=== PATIENT | female | born 1975 | race Caucasian/White ===

== ENCOUNTER 2017-11-28 12:34 | Inpatient (IN) | payer OTHER ==
[2017-11-28 12:57] VITALS: BMI 28.5
--- NOTE | 2017-11-28 15:02 | HP ---
COWS - Scale Resting Pulse: 1= NM 81-100 Sweatin= Chills/Flushing Restless Observation: 3= Extraneous Movement (rocking back and forth) Pupil Size: 0= Normal to Room Light Bone or Joint Aches: 2= Severe Diffuse Aches Runny Nose/ Eye Tearin= Runny Nose/Eyes GI Upset > 30mins: 2= Nausea/Diarrhea Tremor Observation: 2= Slight Tremor Visible Yawning Observation: 2= >3x During Session Anxiety or Irritability: 2=Irritable/Anxious Goose Flesh Skin: 0=Smooth Skin COWS Score: 17 Admission ROS S - HPI Chief Complaint: opiate withdrawal sx patient denies medical issue admitted has bipolar I treated with lithium last dose unknown Allergies/Adverse Reactions: Allergies Allergy/AdvReac Type Severity Reaction Status Date / Time No Known Allergies Allergy Verified 11/28/17 15:03 History of Present Illness: 42 years old female with long history of opiate and nicotine dependence, treated with suboxone x 2 years sine 2011 last dose 2013 methadone program "few months ago" at dosage 120 mg has bipolar and no teeth is admitted to detox Exam Limitations: No Limitations - Ebola screening Have you traveled outside of the country in the last 21 days: No Have you had contact with anyone from an Ebola affected area: No Have you been sick,other than usual withdrawal symptoms: No Do you have a fever: No - Review of Systems Constitutional: Changes in sleep, Weight Stable EENT: reports: Dental Problems (no teeth no dental) Respiratory: reports: No Symptoms reported Cardiac: reports: No Symptoms Reported GI: reports: Nausea, Poor Fluid Intake, Abdominal cramping : reports: No Symptoms Reported Musculoskeletal: reports: Back Pain, Joint Pain, Muscle Pain, Neck Pain Integumentary: reports: No Symptoms Reported Neuro: reports: Seizure (shampoo for lice 1993), Tremors Endocrine: reports: No Symptoms Reported Hematology: reports: No Symptoms Reported Psychiatric: reports: Judgement Intact, Orientated x3, Depressed Other Systems: Reviewed and Negative Patient History - Patient Medical History Hx Anemia: No Hx Asthma: No Hx Chronic Obstructive Pulmonary Disease (COPD): No Hx Cancer: No Hx Cardiac Disorders: No Hx Congestive Heart Failure: No Hx Hypertension: No Hx Hypercholesterolemia: No Hx Pacemaker: No HX Cerebrovascular Accident: No Hx Seizures: No Hx Dementia: No Hx Diabetes: No Hx Gastrointestinal Disorders: No Hx Liver Disease: No Hx Genitourinary Disorders: No Hx Sexually Transmitted Disorders: No Hx Renal Disease (ESRD): No Hx Thyroid Disease: No Hx Human Immunodeficiency Virus (HIV): No Hx Hepatitis C: No Hx Depression: No Hx Suicide Attempt: No Hx Bipolar Disorder: Yes Hx Schizophrenia: No - Patient Surgical History Past Surgical History: Yes Hx Neurologic Surgery: No Hx Cataract Extraction: No Hx Cardiac Surgery: No Hx Lung Surgery: No Hx Breast Surgery: No Hx Breast Biopsy: No Hx Abdominal Surgery: No Hx Appendectomy: No Hx Cholecystectomy: Yes (2003) Hx Genitourinary Surgery: No Hx Orthopedic Surgery: No Anesthesia Reaction: No - PPD History Previous Implant?: Yes Documented Results: Negative w/o proof Implanted On Prior R Admission?: No PPD to be Administered?: Yes - Reproductive History Patient is a Female of Child Bearing Age (11 -55 yrs old): Yes Last Menstrual Period: 11/27/17 Patient : No - Smoking Cessation Smoking history: Current every day smoker Have you smoked in the past 12 months: Yes Aproximately how many cigarettes per day: 30 Cigars Per Day: 0 Hx Chewing Tobacco Use: No Initiated information on smoking cessation: Yes 'Breaking Loose' booklet given: 11/28/17 - Substance & Tx. History Hx Alcohol Use: No Hx Substance Use: Yes Substance Use Type: Cocaine, Heroin, Opiates Hx Substance Use Treatment: Yes (2011) Family Disease History - Family Disease History Family Disease History: Heart Disease: Father Admission Physical Exam BHS - Vital Signs Vital Signs: Vital Signs - 24 hr 11/28/17 12:51 Temperature 97.7 F Pulse Rate 78 Respiratory 18 Rate Blood Pressure 144/90 - Physical General Appearance: Yes: Appropriately Dressed, Moderate Distress, Tremorous, Irritable, Sweating, Anxious HEENTM: Yes: Normocephalic, Normal Voice, Other (NO TEETH ABLE TO CHEW REGULAR FOOD) Respiratory: Yes: Lungs Clear, Normal Breath Sounds, No Respiratory Distress, No Accessory Muscle Use Neck: Yes: Supple, Trachea in good position Breast: Yes: Breasts Symetrical, No Discharge Cardiology: Yes: Regular Rhythm, Regular Rate, S1, S2 Abdominal: Yes: Non Tender, Flat, Soft, Increased Bowel Sounds Genitourinary: Yes: Within Normal Limits Back: Yes: Normal Inspection Musculoskeletal: Yes: full range of Motion, Gait Steady, Back pain, Muscle Pain Extremities: Yes: Normal Inspection, Normal Range of Motion, Non-Tender, Tremors Neurological: Yes: Fully Oriented, Alert, Motor Strength 5/5, Normal Response, Depressed Affect Integumentary: Yes: Warm, Other (FEW MOSQUIDO BITS ON LEGS AND UPPER RUCK) Lymphatic: Yes: Within Normal Limits - Diagnostic (1) Opioid dependence with withdrawal Current Visit: Yes Status: Acute (2) Bipolar I disorder Current Visit: Yes Status: Suspected (3) No natural teeth Current Visit: Yes Status: Chronic Comment: LOST DENTURE (4) History of methadone use Current Visit: Yes Status: Resolved Comment: 120 MG LAST DOSE "FEW MONTHS AGO" Cleared for Admission [facility] - Detox or Rehab [facility] Level of Care: Medically Managed Detox Regimen/Protocol: Methadone [facility] Breath Alcohol Content Breath Alcohol Content: 0 Urine Pregancy Test - Result Urine Test Results: Negative- NO Line Present Urine Drug Screen - Results Drug Screen Negative: No Urine Drug Screen Results: OLEGARIO-Cocaine, OPI-Opiates, BZO-Benzodiazepines, MTD- Methadone
[2017-11-28] MEDS ORDERED: MAGNESIUM CITRATE 300 ML BOTTLE PO PRN (15:12)
[2017-11-28] MEDS ORDERED: MAGNESIUM HYDROX 2400MG/30ML ORAL SUSPENSION 30 ML CUP PO PRN (15:12)
[2017-11-28] MEDS ORDERED: P-EPHED 60MG/TRIPROLIDI 2.5MG TABLET PO PRN (15:12)
[2017-11-28] MEDS ORDERED: MENTHOL/PHENOL 1 EACH UD MM PRN (15:12)
[2017-11-28] MEDS ORDERED: ACETAMINOPHEN 325 MG TABLET (FP) PO PRN (15:12)
[2017-11-28] MEDS ORDERED: NICOTINE POLACRILEX 4 MG GUM BC PRN (15:12)
[2017-11-28] MEDS ORDERED: LOPERAMIDE HCL 2 MG CAPSULE PO PRN (15:12)
[2017-11-28] MEDS ORDERED: guaiFENesin/D-METHORPHAN HB 10 ML UNIT-DOSE CUPS PO PRN (15:12)
[2017-11-28] MEDS ORDERED: METHADONE HCL 10 MG TABLET (FOR DETOX USE ONLY) PO ONE ×2 (16:30→23:00)
[2017-11-28] MEDS: NICOTINE 21 MG/24 HOURS TOPICAL PATCH TD SCH (18:07)
[2017-11-28] MEDS: diazePAM 5 MG TABLET PO PRN (20:59)
[2017-11-28] MEDS: THIAMINE HCL 100 MG TABLET (FP) PO SCH (22:20)
[2017-11-28] MEDS: MELATONIN 5 MG TABLETS PO PRN (23:45)
--- NOTE | 2017-11-29 07:41 | CONSULT ---
[facility] Psychiatric Consult - Data Date of interview: 11/29/17 Admission source: [facility] Identifying data: This is 42 years old female, mother of ten, , homeless, on SSI and SSD, with long history of opiate, cocaine and nicotine dependence, history of psychiatric hospitalizations and Bipolar Disorder, reports withdrawal symptoms and seeking for detox. Substance Abuse History: Smoking history: Current every day smoker. Have you smoked in the past 12 months: Yes. Aproximately how many cigarettes per day: 30. Cigars Per Day: 0. Hx Chewing Tobacco Use: No. Initiated information on smoking cessation: Yes. 'Breaking Loose' booklet given: 11/28/17. - Substance & Tx. History. Hx Alcohol Use: No. Hx Substance Use: Yes. Substance Use Type : Cocaine, Heroin, Opiates. Hx Substance Use Treatment: Yes (2011). Urine Drug Screen Results: OLEGARIO-Cocaine, OPI-Opiates, BZO-Benzodiazepines, MTD- Methadone Medical History: Denies significant medical issues Psychiatric History: Patient reports history of Bipolar Disorder, reports most recent psychiatric admission on about 10 years ago, currently is not taking psychiatric medications. Patient reports insomnia, reports taking prior to admission: Ambien 10mg po prn qhs for insomnia Physical/Sexual Abuse/Trauma History: Denies Additional Comment: Urine Drug Screen Results: OLEGARIO-Cocaine, OPI-Opiates, BZO- Benzodiazepines, MTD-Methadone. Ambien 10mg po prn qhs for insomnia Mental Status Exam - Mental Status Exam Alert and Oriented to: Person Cognitive Function: Fair Patient Appearance: Well Groomed Mood: Anxious Affect: Normal Range Patient Behavior: Cooperative Speech Pattern: Appropriate Voice Loudness: Normal Thought Process: Goal Oriented Thought Disorder: Being Controlled Hallucinations: Denies Suicidal Ideation: Denies Homicidal Ideation: Denies Insight/Judgement: Fair Sleep: Difficulty falling asleep Appetite: Fair Muscle strength/Tone: Normal Gait/Station: Normal Additional Comments: Ambien 10mg po prn qhs for insomnia Psychiatric Findings - Problem List ([place] 1, 2,3) (1) Opioid dependence Current Visit: Yes Status: Acute (2) Cocaine abuse Current Visit: Yes Status: Acute (3) Nicotine dependence Current Visit: Yes Status: Acute (4) Opioid dependence with withdrawal Current Visit: Yes Status: Acute (5) Bipolar I disorder Current Visit: Yes Status: Suspected (6) History of methadone use Current Visit: Yes Status: Resolved Comment: 120 MG LAST DOSE "FEW MONTHS AGO" (7) Drug-induced mood disorder Current Visit: Yes Status: Acute - Initial Treatment Plan Initial Treatment Plan: Ambien 10mg po prn qhs for insomnia
[2017-11-29 09:24] LABS: HEMATOCRIT 39.8 % (32.4-45.2); HEMOGLOBIN 13.6 GM/dL (10.7-15.3); MCH 31.2 pg (25.7-33.7); MCHC 34.3 g/dl (32.0-36.0); MEAN CELL VOLUME 90.7 fl (80-96); MEAN PLT VOLUME 9.7 fl (7.5-11.1); PLATELET COUNT 197 K/MM3 (134-434); RBC 4.38 M/mm3 (3.60-5.2); RDW 14.6 % (11.6-15.6); WHITE BLOOD COUNT 5.9 K/mm3 (4.0-10.0)
[2017-11-29] MEDS: diazePAM 5 MG TABLET PO PRN ×3 (09:40→22:07)
[2017-11-29] MEDS: IBUPROFEN 400 MG TABLET (FP) PO PRN (09:40)
[2017-11-29] MEDS ORDERED: METHADONE HCL 10 MG TABLET (FOR DETOX USE ONLY) PO ONE (10:00)
--- NOTE | 2017-11-29 10:16 | EKG ---
Test Reason : Blood Pressure : / mmHG Vent. Rate : 066 BPM Atrial Rate : 066 BPM P-R Int : 116 ms QRS Dur : 086 ms QT Int : 392 ms P-R-T Axes : 037 029 053 degrees QTc Int : 410 ms NORMAL SINUS RHYTHM NORMAL ECG NO PREVIOUS ECGS AVAILABLE Confirmed by ELIUD SPENCER, JIHAN ([id number]) on 11/29/2017 10:15:47 AM Referred By: Confirmed By:JIHAN KLINE MD
[2017-11-29] MEDS: NICOTINE 21 MG/24 HOURS TOPICAL PATCH TD SCH (10:24)
[2017-11-29] MEDS: PRENATAL VITAMINS W/ FOLIC ACID TABLET (FP) PO SCH (10:24)
[2017-11-29 10:32] LABS: ALBUMIN 3.4 g/dl (3.4-5.0); ANION GAP 7 (8-16); BILIRUBIN,TOTAL 0.5 mg/dL (0.2-1.0); BLOOD UREA NITROGEN 11 mg/dL (7-18); CALCIUM 8.8 mg/dL (8.5-10.1); CHLORIDE 107 mmol/L (98-107); CO2 32 mmol/L (21-32); CREATININE 0.7 mg/dL (0.55-1.02); GLUCOSE,RANDOM 86 mg/dL (74-106); POTASSIUM 3.9 mmol/L (3.5-5.1); SGOT/AST 13 U/L (15-37); SGPT/ALT 21 U/L (12-78); SODIUM 146 mmol/L (136-145); TOT PROT 6.1 g/dl (6.4-8.2)
[2017-11-29 10:33] LABS: ALK PHOS 48 U/L (45-117)
--- NOTE | 2017-11-29 10:41 | PN ---
BHS COWS - Scale Resting Pulse: 0= [place] 80 or Below Sweatin= Chills/Flushing Restless Observation: 1= Difficult to Sit Still Pupil Size: 1= Pupils >than Normal Bone or Joint Aches: 2= Severe Diffuse Aches Runny Nose/ Eye Tearin= Runny Nose/Eyes GI Upset > 30mins: 2= Nausea/Diarrhea Tremor Observation of Outstretched Hands: 2= Slight Tremor Visible Yawning Observation: 2= >3x During Session Anxiety or Irritability: 2=Irritable/Anxious Goose Flesh Skin: 0=Smooth Skin COWS Score: 15 BHS Progress Note (SOAP) Subjective: joint pain trouble sleep at night anxiety irritable restlessness seen by psychiatrist feeling better Objective: 11/29/17 10:40 Vital Signs Temperature 98.1 F 11/29/17 09:17 Pulse Rate 75 11/29/17 09:17 Respiratory Rate 18 11/29/17 09:17 Blood Pressure 111/71 11/29/17 09:17 O2 Sat by Pulse Oximetry (%) Laboratory Last Values WBC 5.9 K/mm3 (4.0-10.0) 11/29/17 07:00 RBC 4.38 M/mm3 (3.60-5.2) 11/29/17 07:00 Hgb 13.6 GM/dL (10.7-15.3) 11/29/17 07:00 Hct 39.8 % (32.4-45.2) 11/29/17 07:00 MCV 90.7 fl (80-96) 11/29/17 07:00 MCH 31.2 pg (25.7-33.7) 11/29/17 07:00 MCHC 34.3 g/dl (32.0-36.0) 11/29/17 07:00 RDW 14.6 % (11.6-15.6) 11/29/17 07:00 Plt Count 197 K/MM3 (134-434) 11/29/17 07:00 MPV 9.7 fl (7.5-11.1) 11/29/17 07:00 Sodium 146 mmol/L (136-145) H 11/29/17 07:00 Potassium 3.9 mmol/L (3.5-5.1) 11/29/17 07:00 Chloride 107 mmol/L (98-107) 11/29/17 07:00 Carbon Dioxide 32 mmol/L (21-32) 11/29/17 07:00 Anion Gap 7 (8-16) L 11/29/17 07:00 BUN 11 mg/dL (7-18) 11/29/17 07:00 Creatinine 0.7 mg/dL (0.55-1.02) 11/29/17 07:00 Creat Clearance w eGFR > 60 (>60) 11/29/17 07:00 Random Glucose 86 mg/dL (74-106) 11/29/17 07:00 Calcium 8.8 mg/dL (8.5-10.1) 11/29/17 07:00 Total Bilirubin 0.5 mg/dL (0.2-1.0) 11/29/17 07:00 AST 13 U/L (15-37) L 11/29/17 07:00 ALT 21 U/L (12-78) 11/29/17 07:00 Alkaline Phosphatase 48 U/L (45-117) 11/29/17 07:00 Total Protein 6.1 g/dl (6.4-8.2) L 11/29/17 07:00 Albumin 3.4 g/dl (3.4-5.0) 11/29/17 07:00 lab noted Assessment: 11/29/17 10:40 withdrawal sx Plan: continue detox
[2017-11-29] MEDS: BACLOFEN 10 MG TABLET (FP) PO SCH ×2 (14:37→23:01)
[2017-11-29 18:19] LABS: URINE APPEARANCE TURBID; URINE BILIRUBIN NEGATIVE (<2.0 mg/dL); URINE COLOR YELLOW; URINE GLUCOSE (UA) NEGATIVE (NEGATIVE); URINE KETONE NEGATIVE (NEGATIVE); URINE LEUK ESTERASE NEGATIVE (NEGATIVE); URINE NITRITE NEGATIVE (NEGATIVE); URINE PROTEIN NEGATIVE (NEGATIVE)
[2017-11-29] MEDS: THIAMINE HCL 100 MG TABLET (FP) PO SCH (22:07)
[2017-11-29] MEDS: ZOLPIDEM TARTRATE 10 MG TABLET (PARK CARE ONLY) PO PRN (22:07)
[2017-11-29] MEDS: MELATONIN 5 MG TABLETS PO PRN (22:08)
[2017-11-29] MEDS: MAG HYDROX/AL HYDROX/SIMETH 30 ML UNIT-DOSE CUP PO PRN (22:10)
[2017-11-30] MEDS: diazePAM 5 MG TABLET PO PRN ×3 (06:35→18:47)
[2017-11-30] MEDS: BACLOFEN 10 MG TABLET (FP) PO SCH ×3 (06:35→22:41)
--- NOTE | 2017-11-30 09:40 | PN ---
S COWS - Scale Resting Pulse: 0= [place] 80 or Below Sweatin= Chills/Flushing Restless Observation: 1= Difficult to Sit Still Pupil Size: 1= Pupils >than Normal Bone or Joint Aches: 2= Severe Diffuse Aches Runny Nose/ Eye Tearin= Nasal Congestion GI Upset > 30mins: 1= Stomach Cramp Tremor Observation of Outstretched Hands: 1= Tremor Percival, Not Seen Yawning Observation: 2= >3x During Session Anxiety or Irritability: 2=Irritable/Anxious Goose Flesh Skin: 0=Smooth Skin COWS Score: 12 S Progress Note (SOAP) Subjective: joint pain body ache anxiety tremor irritable trouble sleep at night Objective: 11/30/17 09:41 Vital Signs Temperature 97.7 F 11/30/17 07:49 Pulse Rate 56 L 11/30/17 07:49 Respiratory Rate 18 11/30/17 07:49 Blood Pressure 114/69 11/30/17 07:49 O2 Sat by Pulse Oximetry (%) Laboratory Last Values WBC 5.9 K/mm3 (4.0-10.0) 11/29/17 07:00 RBC 4.38 M/mm3 (3.60-5.2) 11/29/17 07:00 Hgb 13.6 GM/dL (10.7-15.3) 11/29/17 07:00 Hct 39.8 % (32.4-45.2) 11/29/17 07:00 MCV 90.7 fl (80-96) 11/29/17 07:00 MCH 31.2 pg (25.7-33.7) 11/29/17 07:00 MCHC 34.3 g/dl (32.0-36.0) 11/29/17 07:00 RDW 14.6 % (11.6-15.6) 11/29/17 07:00 Plt Count 197 K/MM3 (134-434) 11/29/17 07:00 MPV 9.7 fl (7.5-11.1) 11/29/17 07:00 Sodium 146 mmol/L (136-145) H 11/29/17 07:00 Potassium 3.9 mmol/L (3.5-5.1) 11/29/17 07:00 Chloride 107 mmol/L (98-107) 11/29/17 07:00 Carbon Dioxide 32 mmol/L (21-32) 11/29/17 07:00 Anion Gap 7 (8-16) L 11/29/17 07:00 BUN 11 mg/dL (7-18) 11/29/17 07:00 Creatinine 0.7 mg/dL (0.55-1.02) 11/29/17 07:00 Creat Clearance w eGFR > 60 (>60) 11/29/17 07:00 Random Glucose 86 mg/dL (74-106) 11/29/17 07:00 Calcium 8.8 mg/dL (8.5-10.1) 11/29/17 07:00 Total Bilirubin 0.5 mg/dL (0.2-1.0) 11/29/17 07:00 AST 13 U/L (15-37) L 11/29/17 07:00 ALT 21 U/L (12-78) 11/29/17 07:00 Alkaline Phosphatase 48 U/L (45-117) 11/29/17 07:00 Total Protein 6.1 g/dl (6.4-8.2) L 11/29/17 07:00 Albumin 3.4 g/dl (3.4-5.0) 11/29/17 07:00 Urine Color Yellow 11/28/17 15:00 Urine Appearance Turbid 11/28/17 15:00 Urine pH 5.0 (5.0-8.0) 11/28/17 15:00 Ur Specific [place] 1.024 (1.001-1.035) 11/28/17 15:00 Urine Protein Negative (NEGATIVE) 11/28/17 15:00 Urine Glucose (UA) Negative (NEGATIVE) 11/28/17 15:00 Urine Ketones Negative (NEGATIVE) 11/28/17 15:00 Urine Blood Negative (NEGATIVE) 11/28/17 15:00 Urine Nitrite Negative (NEGATIVE) 11/28/17 15:00 Urine Bilirubin Negative (<2.0 mg/dL) 11/28/17 15:00 Urine Urobilinogen 2.0 mg/dL (0.2-1.0) H 11/28/17 15:00 Ur Leukocyte Esterase Negative (NEGATIVE) 11/28/17 15:00 RPR Titer Nonreactive (NONREACTIVE) 11/29/17 07:00 lab noted Assessment: 11/30/17 09:41 withdrawal sx Plan: continue detox
[2017-11-30] MEDS ORDERED: METHADONE HCL 5 MG TABLET (FOR DETOX USE ONLY) PO ONE (10:00)
[2017-11-30] MEDS: PRENATAL VITAMINS W/ FOLIC ACID TABLET (FP) PO SCH (10:31)
[2017-11-30] MEDS: NICOTINE 21 MG/24 HOURS TOPICAL PATCH TD SCH (10:31)
[2017-11-30] MEDS: ZOLPIDEM TARTRATE 10 MG TABLET (PARK CARE ONLY) PO PRN (22:41)
[2017-11-30] MEDS: THIAMINE HCL 100 MG TABLET (FP) PO SCH (22:41)
[2017-12-01] MEDS: BACLOFEN 10 MG TABLET (FP) PO SCH ×3 (05:31→22:40)
[2017-12-01] MEDS: diazePAM 5 MG TABLET PO PRN ×2 (05:31→10:53)
[2017-12-01] MEDS: MAG HYDROX/AL HYDROX/SIMETH 30 ML UNIT-DOSE CUP PO PRN (05:33)
[2017-12-01] MEDS ORDERED: ONDANSETRON *ODT* 4 MG TABLET SL PRN (09:29)
--- NOTE | 2017-12-01 09:35 | PN ---
BHS Progress Note Note: 42 yo female with hx of opioid dependence. C/O anxiety, chills , generalize body aches, back pain, nausea, interrupted sleep , and frequent sneezing. Denies CP, SOB. Vital Signs Temperature 97.5 F L 12/01/17 07:47 Pulse Rate 62 12/01/17 07:47 Respiratory Rate 18 12/01/17 07:47 Blood Pressure 122/82 12/01/17 07:47 O2 Sat by Pulse Oximetry (%) Laboratory Last Values WBC 5.9 K/mm3 (4.0-10.0) 11/29/17 07:00 RBC 4.38 M/mm3 (3.60-5.2) 11/29/17 07:00 Hgb 13.6 GM/dL (10.7-15.3) 11/29/17 07:00 Hct 39.8 % (32.4-45.2) 11/29/17 07:00 MCV 90.7 fl (80-96) 11/29/17 07:00 MCH 31.2 pg (25.7-33.7) 11/29/17 07:00 MCHC 34.3 g/dl (32.0-36.0) 11/29/17 07:00 RDW 14.6 % (11.6-15.6) 11/29/17 07:00 Plt Count 197 K/MM3 (134-434) 11/29/17 07:00 MPV 9.7 fl (7.5-11.1) 11/29/17 07:00 Sodium 146 mmol/L (136-145) H 11/29/17 07:00 Potassium 3.9 mmol/L (3.5-5.1) 11/29/17 07:00 Chloride 107 mmol/L (98-107) 11/29/17 07:00 Carbon Dioxide 32 mmol/L (21-32) 11/29/17 07:00 Anion Gap 7 (8-16) L 11/29/17 07:00 BUN 11 mg/dL (7-18) 11/29/17 07:00 Creatinine 0.7 mg/dL (0.55-1.02) 11/29/17 07:00 Creat Clearance w eGFR > 60 (>60) 11/29/17 07:00 Random Glucose 86 mg/dL (74-106) 11/29/17 07:00 Calcium 8.8 mg/dL (8.5-10.1) 11/29/17 07:00 Total Bilirubin 0.5 mg/dL (0.2-1.0) 11/29/17 07:00 AST 13 U/L (15-37) L 11/29/17 07:00 ALT 21 U/L (12-78) 11/29/17 07:00 Alkaline Phosphatase 48 U/L (45-117) 11/29/17 07:00 Total Protein 6.1 g/dl (6.4-8.2) L 11/29/17 07:00 Albumin 3.4 g/dl (3.4-5.0) 11/29/17 07:00 Urine Color Yellow 11/28/17 15:00 Urine Appearance Turbid 11/28/17 15:00 Urine pH 5.0 (5.0-8.0) 11/28/17 15:00 Ur Specific [place] 1.024 (1.001-1.035) 11/28/17 15:00 Urine Protein Negative (NEGATIVE) 11/28/17 15:00 Urine Glucose (UA) Negative (NEGATIVE) 11/28/17 15:00 Urine Ketones Negative (NEGATIVE) 11/28/17 15:00 Urine Blood Negative (NEGATIVE) 11/28/17 15:00 Urine Nitrite Negative (NEGATIVE) 11/28/17 15:00 Urine Bilirubin Negative (<2.0 mg/dL) 11/28/17 15:00 Urine Urobilinogen 2.0 mg/dL (0.2-1.0) H 11/28/17 15:00 Ur Leukocyte Esterase Negative (NEGATIVE) 11/28/17 15:00 RPR Titer Nonreactive (NONREACTIVE) 11/29/17 07:00 Patient AOx3, anxious, + diaphoresis No adventitious breath sounds Full ROM, pacing in the unit without limitations - withdrawal sx Plan: zofran PRN for nausea actifed PRN sneezing increase fluids vistaril for anxiety continue to monitor
[2017-12-01] MEDS ORDERED: METHADONE HCL 5 MG TABLET (FOR DETOX USE ONLY) PO ONE (10:00)
[2017-12-01] MEDS: PRENATAL VITAMINS W/ FOLIC ACID TABLET (FP) PO SCH (10:53)
[2017-12-01] MEDS: NICOTINE 21 MG/24 HOURS TOPICAL PATCH TD SCH (10:55)
[2017-12-01] MEDS: IBUPROFEN 400 MG TABLET (FP) PO PRN (10:58)
[2017-12-01] MEDS ORDERED: CYCLOBENZAPRINE HCL 5 MG TABLET PO SCH (14:00)
[2017-12-01] MEDS: hydrOXYzine PAMOATE 50 MG CAPSULE (FP) PO PRN (15:23)
[2017-12-01] MEDS: THIAMINE HCL 100 MG TABLET (FP) PO SCH (22:40)
[2017-12-01] MEDS: ZOLPIDEM TARTRATE 10 MG TABLET (PARK CARE ONLY) PO PRN (22:40)
[2017-12-02] MEDS: BACLOFEN 10 MG TABLET (FP) PO SCH ×2 (05:37→14:51)
[2017-12-02] MEDS: hydrOXYzine PAMOATE 50 MG CAPSULE (FP) PO PRN ×2 (05:38→11:12)
[2017-12-02] MEDS ORDERED: METHADONE HCL 10 MG TABLET (FOR DETOX USE ONLY) PO ONE (10:00)
[2017-12-02] MEDS: NICOTINE 21 MG/24 HOURS TOPICAL PATCH TD SCH (11:11)
[2017-12-02] MEDS: PRENATAL VITAMINS W/ FOLIC ACID TABLET (FP) PO SCH (11:11)
[2017-12-02 15:28] VITALS: BP 121/75; PULSE 82; TEMP 97.9
--- NOTE | 2017-12-02 16:51 | PN ---
BHS Progress Note (SOAP) Subjective: sleep disturbance Shakes sweats Objective: 12/02/17 16:50 A & O x 3 In no acute distress Vital Signs Temperature 97.9 F 12/02/17 15:27 Pulse Rate 82 12/02/17 15:27 Respiratory Rate 18 12/02/17 15:27 Blood Pressure 121/75 12/02/17 15:27 O2 Sat by Pulse Oximetry (%) Assessment: 12/02/17 16:51 withdrawal sx Plan: continue detox
--- NOTE | 2017-12-02 16:58 | DS ---
[facility] Detox Discharge Summary Admission Date: 11/28/17 Discharge Date: 12/02/17 - History Additional Comments: pt insisting on leaving the unit, states she wants to go f/u on getting into methadone program. Declines attempt to educate her to stay and complete detox in no acute distress Pt will sign out AMA, pt verbalized understanding of policy - Physical Exam Results Vital Signs: Vital Signs Temperature 97.9 F 12/02/17 15:27 Pulse Rate 82 12/02/17 15:27 Respiratory Rate 18 12/02/17 15:27 Blood Pressure 121/75 12/02/17 15:27 O2 Sat by Pulse Oximetry (%) Pertinent Admission Physical Exam Findings: withdrawal sx - Medication Discharge Medications: Ambulatory Orders NK [No Known Home Medication] 11/28/17 - Diagnosis (1) Opioid dependence with withdrawal Current Visit: Yes Status: Acute (2) Cocaine abuse Current Visit: Yes Status: Acute (3) Nicotine dependence Current Visit: Yes Status: Acute (4) No natural teeth Current Visit: Yes Status: Chronic - AMA Did Patient Leave Against Medical Advice: Yes
[2017-12-03] MEDS ORDERED: METHADONE HCL 5 MG TABLET (FOR DETOX USE ONLY) PO ONE (06:00)
== END 2017-12-02 16:30 | disposition left against medical advice (07) | DRG 894 ==
LOC: YASAS 12:34 → Y6N 15:52
PROVIDERS: ADMIT Surgery; ATTEND Surgery
PROC: HZ2ZZZZ Detoxification Services for Substance Abuse Treatment (ICD-10-PCS; principal; 2017-11-28)
DX: F11.23 Opioid dependence with withdrawal (principal); F14.20 Cocaine dependence, uncomplicated; F31.89 Other bipolar disorder; F17.210 Nicotine dependence, cigarettes, uncomplicated; F19.24 Other psychoactive substance dependence with psychoactive substance-induced mood disorder; K00.0 Anodontia; Z59.0 Homelessness
CPT/HCPCS: 36415; 80053; 81003; 85027; 86593; 93005; 93010; J0475